=== PATIENT | male | born 1950 | race Caucasian/White ===

== ENCOUNTER 2024-08-11 11:11 | Emergency (ER) | payer MEDICAID, OTHER ==
[~2024-08-11] VITALS: Ht 170.2 cm; Wt 74.8 kg
[2024-08-11] MEDS ORDERED: ALBUTEROL SULFATE 2.5 MG/3 ML NEBU ONE (12:03)
[2024-08-11] MEDS ORDERED: IPRATROPIUM BROMIDE 0.5 MG/2.5 ML NEBU ONE (12:03)
[2024-08-11 12:10] LABS: CALCIUM 8.5 mg/dL (8.5-10.1); CARBON DIOXIDE 27 mmol/L (21-32); CHLORIDE 102 mmol/L (98-107); CREATININE 1.3 mg/dL (0.6-1.3); GLUCOSE 103 mg/dL (74-106); POTASSIUM 3.8 mmol/L (3.5-5.1); SODIUM SERUM 140 mmol/L (136-145); UREA NITROGEN, BLOOD 18 mg/dL (7-18)
[2024-08-11] MEDS ORDERED: methylPREDNISolone SOD SUCC 125 MG/2 ML VIAL ONE (12:10)
[2024-08-11] MEDS: ALBUTEROL SULFATE 2.5 MG/3 ML NEBU NEB ONE ×2 (12:11)
[2024-08-11] MEDS: IPRATROPIUM BROMIDE 0.5 MG/2.5 ML NEBU NEB ONE (12:11)
[2024-08-11] MEDS ORDERED: MAGNESIUM SULFATE/D5W 200 ML ONE (12:11)
[2024-08-11] MEDS: methylPREDNISolone SOD SUCC 125 MG/2 ML VIAL IV ONE (12:14)
[2024-08-11 12:17] LABS: BASOPHILS % (AUTO) 0.5 % (0.0-2.0); HEMATOCRIT 32.4 % (36.7-47.1); HEMOGLOBIN 10.9 g/dL (12.5-16.3); LYMPHOCYTES # (AUTO) 1.8 K/uL (0.8-4.8); LYMPHOCYTES % (AUTO) 32.6 % (20.5-51.5); MEAN CORPUSCULAR HEMOGLOBIN 27.2 uug (23.8-33.4); MEAN CORPUSCULAR HGB CONC 34 g/dL (32.5-36.3); MEAN CORPUSCULAR VOLUME 80.5 fL (73.0-96.2); MONOCYTES # (AUTO) 0.4 K/uL (0.1-1.30); MONOCYTES % (AUTO) 6.4 % (0.0-11.0); NEUTROPHILS # (AUTO) 3.3 K/uL (1.8-8.9); NEUTROPHILS % (AUTO) 60.5 % (38.5-71.5); PLATELET COUNT (AUTO) 60 K/uL (152-348); RED BLOOD CELL COUNT(AUTO) 4.02 MIL/uL (4.06-5.63); RED CELL DISTRIBUTION WIDTH 14.7 % (12.1-16.2); WHITE BLOOD COUNT (AUTO) 5.5 K/uL (3.6-10.2)
[2024-08-11 12:19] LABS: DIFFERENTIAL COMMENT 1
[2024-08-11 12:22] LABS: ALANINE AMINOTRANSFERASE 18 U/L (16-63); ALBUMIN 3.5 g/dL (3.4-5.0); ALKALINE PHOSPHATASE 65 U/L (50-136); ASPARTATE AMINOTRANSFERASE 28 U/L (15-37); BILIRUBIN,DIRECT 0.2 mg/dL (0.0-0.2); BILIRUBIN,TOTAL 0.5 mg/dL (0.2-1.0); NT-PRO BNP 256 pg/mL (0-125); TOTAL PROTEIN, SERUM 6.7 g/dL (6.4-8.2)
[2024-08-11] MEDS: MAGNESIUM SULFATE 2 GM in IV DEXTROSE 5% 100 ML IV ONE (12:31)
[2024-08-11] MEDS: IV NORMAL SALINE 1000 ML BAG IV ONE (13:25)
[2024-08-11] MEDS ORDERED: LOPERAMIDE HCL 2 MG CAPSULE ONE (14:00)
[2024-08-11] MEDS: LOPERAMIDE HCL 2 MG CAPSULE PO ONE (14:02)
[2024-08-11] MEDS: IV LACTATED RINGERS SOLUTION 1,000 ML BAG IV ONE (14:47)
[2024-08-11] MEDS ORDERED: IV NORMAL SALINE 250 ML IV ONE (16:17)
[2024-08-11] MEDS ORDERED: IOHEXOL 350 100 ML INFUS..BTL ONE (16:17)
[2024-08-11] MEDS ORDERED: SWABABLE VALVE TRANSFER SET EA MC ONE (16:17)
[2024-08-11] MEDS ORDERED: PRED20TA PO (18:01)
[2024-08-11] MEDS ORDERED: ALBU8.5H8 INH (18:01)
[2024-08-11] MEDS ORDERED: BUDE10.2 INH (18:01)
[2024-08-11] MEDS ORDERED: DOXY100C5 PO (18:01)
[2024-08-11 18:51] VITALS: BP 144/65; TEMP 98; O2SAT 100
[2024-08-13] MEDS ORDERED: PRED20TA PO (10:25)
[2024-08-13] MEDS ORDERED: DOXY100C5 PO (10:25)
[2024-08-13] MEDS ORDERED: ALBU8.5H8 INH (10:25)
[2024-08-13] MEDS ORDERED: BUDE10.2 INH (10:25)
== END 2024-08-11 18:52 | disposition home or self-care (01) ==
LOC: ER 11:11
DX: J44.1 Chronic obstructive pulmonary disease with (acute) exacerbation (principal); D69.6 Thrombocytopenia, unspecified; N40.0 Benign prostatic hyperplasia without lower urinary tract symptoms; R59.1 Generalized enlarged lymph nodes; F17.210 Nicotine dependence, cigarettes, uncomplicated; Z79.51 Long term (current) use of inhaled steroids; Z20.822 Contact with and (suspected) exposure to COVID-19
CPT/HCPCS: 99285; 96365; 71275; 96366; 71045; 96375; 87426; 87804 ×2; 80076; 80048; 83880; 85025; 84145; 85379; 85730; 87040 ×2; 84484; 36415; 83605; J2919; J3475 ×2; Q9967; J7120; J7040; A4606; A4663; J3590